=== PATIENT | female | born 1985 | race Caucasian/White ===

== ENCOUNTER → 2018-04-12 | Outpatient (CLI) | payer OTHER ==
[~2018-04-12] MED LIST: FLEXERIL PO; IBUPROFEN 800800 M1 PO; MOBIC15 MG PO; ULTRAM 50MG TAB50 MG PO
== END ==
LOC: M.ULTRA 09:38
DX: N28.1 Cyst of kidney, acquired (principal)

== ENCOUNTER → 2018-04-24 | Outpatient (CLI) | payer OTHER ==
--- NOTE | 2018-05-30 15:56 | PAINCON ---
[address] [address] PAIN MANAGEMENT CONSULTATION Name: DIDI KRAUS Room: [facility].#: [id number] Admission: 04/24/18 Attend Phys: Lopez Parish MD Discharge: Date of : 87 Report #: [id number] THIS REPORT FOR: //name// CC: Lopez Johnson DATE OF SERVICE: 04/24/2018 CHIEF COMPLAINT: Low back pain that hurts when I bend or trying to stand up. HISTORY OF PRESENT ILLNESS: The patient is a 32-year-old female who has been referred to the pain clinic for evaluation. The patient states that for the last 6 months, she has noted pain and discomfort, which has been more problematic in her lower portion of her lower back. Notes that the pain is exacerbated when she is standing or sitting, particularly standing for a long period of time exacerbates and makes things worse. Pain improves somewhat when she lies flat. She describes it as continuous, constant, cramping, aching, throbbing, pounding, sharp and tender. Rates her pain as an 8/10. She has tried tramadol and Flexeril. She does not feel that they are giving the amount of relief that she would like. Has found that use of a Medrol Dosepak provided some marginal help. Continues to use ibuprofen 800 mg, tramadol and Flexeril. Denies any bowel or bladder dysfunction. She has not had surgery in the back area. Denies trauma. She is not having pain radiating down into the legs. Pain is primarily in the back area in the mid back at L4-L5 and in the sacral area as well as the left and right paraspinus area. ALLERGIES: No known drug allergies. CURRENT MEDICATIONS: Flexeril 10 mg 1 p.o. t.i.d. p.r.n. spasms, ibuprofen 800 mg q. 8 hours p.r.n., tramadol 50 mg every 4-6 hours p.r.n. pain. PAST MEDICAL HISTORY: Joint disease. 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 REVIEW OF SYSTEMS: Generally good health, fatigue, weakness, wears glasses, shortness of breath when walking, loss or change in bowel habits, abdominal pain, muscle pain/cramps back pain. LABORATORY DATA: MRI of the lumbar spine dated 03/28/2018 reveals: 1. L4-L5, there is a small central disk protrusion and minimal bilateral facet arthropathy. There is no central canal or neural foraminal stenosis. L5-S1, there is posterior annular fissure with a mild generalized disk bulge and [facility] [address] [place] [address] PAIN MANAGEMENT CONSULTATION Name: DIDI KRAUS Room: [facility]#: [id number] Admission: 04/24/18 Attend Phys: Lopez Parish MD Discharge: Date of : 87 Report #: [id number] minimal bilateral facet arthropathy. There is no central canal or neural foraminal stenosis. IMPRESSION: L5-S1 mild degenerative disk disease with a posterior annular fissure and a mild generalized disk bulge. There is no central canal or neural foraminal stenosis. PAIN CLINIC ASSESSMENT: 1. History of osteoarthritis/rheumatoid arthritis. The patient is not being treated for rheumatoid arthritis or osteoarthritis. 2. Height 5 feet 7 inches, weight 153 pounds, BMI is 24. 3. Vital signs: Blood pressure 118/72, heart rate 93, respiratory rate 16, room air saturation 97%, temperature 98.5, pain score 5/10. 4. Fall risk. The patient has not fallen in the last 3 months. 5. Blood thinner. The patient is not on blood thinning medication. 6. Hypertension. The patient is not being treated for hypertension. 7. Opioid therapy greater than 6 weeks. The patient is not on opioid therapy. 8. Risk assessment tool. The patient has low probability problems with opioids. 7. Functional assessment tool. 8. The patient rates her pain as a 47/70. 9. Recreational drug use: The patient denies. 10. Tobacco: The patient states that she occasionally smokes cigarettes on a social basis. 11. Alcohol: The patient denies frequent use of alcoholic beverages. PHYSICAL EXAMINATION: GENERAL: The patient is a well-developed, well-nourished white female. Appears her stated age. She is alert and oriented x 3. Affect is appropriate. Speech is fluent. HEENT: Normocephalic, atraumatic. Extraocular eye muscles intact. Sclerae nonicteric. Mucous membranes are moist. The neck good range of motion without bruits or adenopathy. CHEST: Clear to auscultation without rhonchi or rales. HEART: Regular rate. ABDOMEN: Nontender. Bowel sounds present. MUSCULOSKELETAL: Without significant scoliosis, kyphosis or lordosis. Upper extremity muscle strength is judged to be 5/5 for the upper extremity. The patient has some pain and discomfort in the lower portion of her back. Increased pain with lumbar rotation, left and right lateral bending, left and right lateral rotation. Lumbar extension were not very problematic. The patient does have the perception of some popping/clicking sensation in the low back area at approximately the L5-S1. This was not appreciated during the exam. The patient is able to walk on her heels, walk on her toes. Palpation in the left posterior superior iliac spine area and right posterior superior iliac spine area near the gluteus yoanna and latissimus dorsi revealed trigger [facility] [address] [place] [address] PAIN MANAGEMENT CONSULTATION Name: DIDI KRAUS Gonsalo Room: [facility]#: [id number] Admission: 04/24/18 Attend Phys: Lopez Parish MD Discharge: Date of : 87 Report #: [id number] points. Palpation in these reproduce a large component of pain the patient is experiencing. ASSESSMENT: Myofascial pain. RECOMMENDATIONS: We discussed treatment options with the patient. Risks and benefits of trigger point injection were discussed. At this juncture, we will have the patient consider trigger point injections. The patient has discomfort in the left and right posterior superior iliac spine areas. Palpation in these areas both reproduce pain and discomfort similar to what the patient is complaining of. The risks and benefits were discussed. The patient will return to the pain clinic after her insurance company has provided authorization. We will consider trigger point injections at that juncture. We would like to thank you for letting us participate in her care. We hope she continues to improve. <ELECTRONICALLY SIGNED> By: Lopez Parish MD 05/30/18 1556 [id number]. Irwin Parish MD /jes
== END ==
LOC: M.PC 04:32
DX: M51.37 Other intervertebral disc degeneration, lumbosacral region (principal)

== ENCOUNTER → 2018-05-10 | Outpatient (CLI) | payer OTHER ==
--- NOTE | 2018-05-30 16:20 | PAINCON ---
[address] [address] PAIN MANAGEMENT CONSULTATION Name: DIDI KRAUS Room: [facility]#: [id number] Admission: 05/10/18 Attend Phys: Lopez Parish MD Discharge: Date of : 87 Report #: [id number] THIS REPORT FOR: //name// CC: Lopez Johnson DATE OF SERVICE: 05/10/2018 CHIEF COMPLAINT: "Left low back pain. I am now having numbness in my right upper leg." HISTORY OF PRESENT ILLNESS: The patient is a 32-year-old female who has been referred to the pain clinic for evaluation. The patient has had some pain and discomfort for about the last 6 months involving her low back. She notes that there is an area in the low back area that is sore to palpation. Certain movements exacerbate the pain and discomfort. Notes that sitting, standing and long-term positions can exacerbate her pain. Notes that the pain improves when she is lying flat. Describes the discomfort as continuous, constant, cramping, aching, throbbing, pounding and sharp. Rates it today as a 7/10. She has noted some new discomfort involving her left anterior thigh with some numbness from the thigh down into her foot on the left side. Also, perceives some discomfort in her great toe. She is having some cramping sensations as well, which she describes as mild. Denies any new trauma. Denies any new bowel or bladder dysfunction. ALLERGIES: ERYTHROMYCIN. MEDICATIONS: Flexeril 10 mg 1 p.o. t.i.d., spasms, ibuprofen 800 mg 1 p.o. t.i.d. p.r.n., tramadol 50 mg every 4-6 hours p.r.n. pain. PAST MEDICAL HISTORY: Joint disease. PAST SURGICAL HISTORY: Right foot surgery, 12/2016, brennan/fusion. PAIN CLINIC ASSESSMENT AND PQRS: 1. History of osteoarthritis/rheumatoid arthritis. The patient is not being treated for osteoarthritis or rheumatoid arthritis. 2. Height 5 feet 7 inches, weight 152 pounds, BMI is 24. 3. Vital signs: Blood pressure 117/74, heart rate 75, respiratory rate 16, room air saturation is 100, temperature 98.2. 4. Pain score 7/10. 5. Fall risk. The patient has not fallen in the last 3 months. 6. Blood thinner. The patient is not on a blood thinning medication. 7. Hypertension. The patient is not being treated for hypertension. 8. Opioid therapy greater than 6 weeks. The [place] [address] PAIN MANAGEMENT CONSULTATION Name: DIDI KRAUS Gonsalo Room: [facility]#: [id number] Admission: 05/10/18 Attend Phys: Lopez Parish MD Discharge: Date of : 87 Report #: [id number] medication, has tried tramadol. 9. Functional assessment tool, low for opioid use. 10. Functional assessment tool 47/70. 11. Recreational drug use: The patient denies. 12. Tobacco: The patient denies use of tobacco on a regular basis. States she occasionally smokes cigarettes on a social basis. 13. Alcohol: The patient denies frequent use of alcoholic beverages. PHYSICAL EXAMINATION: GENERAL: The patient is a well-developed, well-nourished white female. Appears her stated age. She is alert and oriented x 3. Affect is appropriate. Speech is fluent. HEENT: Normocephalic, atraumatic. Extraocular eye muscles intact. Sclerae nonicteric. Mucous membranes are moist. NECK: Good range of motion without bruits or adenopathy. CHEST: Clear to auscultation without rhonchi or rales. HEART: Regular rate. S1, S2. ABDOMEN: Nontender. Bowel sounds present. MUSCULOSKELETAL: Without significant scoliosis, kyphosis or lordosis. Upper extremity muscle strength is judged to be 5/5 for the major muscle groups. The patient has some pain and discomfort in the lower portion of her back. Note some increased pain with lumbar rotation, left and right lateral bending, left and right lateral twisting. The patient can pinpoint an area of pain and discomfort in the area of the left posterior superior iliac spine near the latissimus dorsi and gluteus yoanna. Palpation in this area does reproduce a component of the patient's pain. She complains of numbness in the anterior thigh near L2-L3. Complains of some pain in the foot on the left side. Notes some numbness and discomfort in the big toe. Also, notes frequent cramping in this area. Palpation in the right low back area near the posterior superior iliac spine area was not problematic today. ASSESSMENT: 1. Myofascial pain. 2. Anterior thigh numbness, tingling down into the level of foot, possible lumbar radicular pain. 3. Joint disease. RECOMMENDATIONS: We discussed treatment options with the patient. At this juncture, the patient has returned to the pain clinic for trigger point injection to the affected low back areas. We discussed the risks and benefits, which could include worsening of pain, no improvement in pain, bleeding, infection. The patient elects to proceed. PROCEDURE NOTE: The patient was taken to the procedure area. She was assisted in getting on examination table. The patient sat on the examination table perpendicular to the bed. A chair was placed under her feet[place] [address] PAIN MANAGEMENT CONSULTATION Name: DIDI KRAUS Room: [facility]#: [id number] Admission: 05/10/18 Attend Phys: Lopez Parish MD Discharge: Date of : 87 Report #: [id number] sterilely prepped in the left posterior superior iliac area. Palpation had revealed a trigger point in this area. Palpation reproduced the patient's discomfort. A 25-gauge needle was then advanced into the area of discomfort. The patient again stated this reproduced her discomfort. Aspiration was negative. Total of 10 mL of 0.5% bupivacaine and 80 mg of Depo-Medrol was injected. The patient tolerated the procedure well. She remained in the pain clinic for an appropriate amount of time. We have discussed the use of Mobic as nonsteroidal anti-inflammatory medications as a different class of medication and the ibuprofen. Hopefully, she would find some benefit to this when they has a CRESPO-2 type of mechanism. A script for this medication has been written. She will take 15 mg 1 p.o. daily. She will note the effects on her GI tract. Hopefully, she does not notice any problems with her stomach. If she does, she should stop this medication. Hopefully, she will find that the injection as well as the Mobic will be helpful in decreasing her pain. The patient may benefit from an epidural steroid injection in the future should she continue to have pain in the anterior portion of her thigh. Hopefully, the systemic effects of the steroid medication will be helpful in her current pain in the anterior portion of her thigh. We would like to thank you for letting us participate in her care. We hope she continues to improve. The patient will not take the ibuprofen in conjunction with a nonsteroidal anti-inflammatory Mobic. We have discussed the problems with taking too much nonsteroidal anti-inflammatory medication. <ELECTRONICALLY SIGNED> By: Lopez Parish MD 05/30/18 1620 [id number]. Irwin Parish MD /[facility]
== END | disposition home or self-care (01) ==
LOC: M.PC 04:46
DX: M79.18 Myalgia, other site (principal); G89.29 Other chronic pain; M19.90 Unspecified osteoarthritis, unspecified site; Z88.8 Allergy status to other drugs, medicaments and biological substances; Z79.899 Other long term (current) drug therapy; Z98.890 Other specified postprocedural states

== ENCOUNTER 2021-04-11 12:09 | Emergency (ER) | payer OTHER ==
[~2021-04-11] VITALS: Ht 170.2 cm; Wt 59.0 kg
[2021-04-11] MEDS ORDERED: FLEXERIL PO (12:32)
[2021-04-11] MEDS ORDERED: HYDROCODON-ACE1 EAC7 PO (12:32)
[2021-04-11] MEDS ORDERED: PREDNISONE 20 M20 M1 PO (12:32)
[2021-04-11 13:11] VITALS: BP 130/99
== END 2021-04-11 13:12 | disposition home or self-care (01) ==
LOC: M.ERS 12:09
DX: S39.012A Strain of muscle, fascia and tendon of lower back, initial encounter (principal); Z98.890 Other specified postprocedural states; Z79.1 Long term (current) use of non-steroidal anti-inflammatories (NSAID); Z79.899 Other long term (current) drug therapy; Z88.1 Allergy status to other antibiotic agents; X58.XXXA Exposure to other specified factors, initial encounter; Y93.89 Activity, other specified; Y92.89 Other specified places as the place of occurrence of the external cause; Y99.8 Other external cause status